=== PATIENT | female | born 1990 | race Caucasian/White ===

== ENCOUNTER 2016-12-27 23:14 | Inpatient (IN) | payer BC ==
[~2016-12-27] VITALS: Ht 157.5 cm; Wt 45.4 kg
[2016-12-27] MEDS ORDERED: Morphine Sulfate 4mg/ml Inj IVP ONE (23:15)
--- NOTE | 2016-12-27 23:26 | Emergency Room Report ---
History of Present Illness General Chief Complaint: Syncope Source: Patient, EMS Present Illness HPI Patient is a 26-year-old female presented after increased vomiting. Patient had prior history of pancreatitis. Patient stated that she had been vomiting several times for the past 2 days. She denied any fever. She reports having epigastric pain. Patient stated that she had not been able to tolerate food or fluids for the last 2 days. She reported having some dark colored emesis which do not appear to be bloody. She denied any diarrhea.She denied recent alcohol use. Allergies: Coded Allergies: No Known Allergies (Unverified , 12/27/16) Patient History Past Medical History: see triage record, other - pancreatitis Last Menstrual Period: 3 weeks ago Now: No Reviewed Nursing Documentation: PMH: Agreed, PSxH: Agreed Nursing Documentation-PMH Past Medical History: No History, Except For Review of Systems All Other Systems: negative except mentioned in HPI Physical Exam Vital Signs Date Time Temp Pulse Resp B/P Pulse Ox O2 Delivery O2 Flow Rate FiO2 12/27/16 22:58 98.4 45 16 142/88 100 Sp02 EP Interpretation: reviewed, normal General Appearance: normal inspection, well appearing, no apparent distress, alert, GCS 15 Head: atraumatic ENT: normal ENT inspection, hearing grossly normal, normal voice Neck: normal inspection, full range of motion, supple, no bony tend Respiratory: normal inspection, lungs clear, normal breath sounds, no respiratory distress, no retraction, no wheezing Cardiovascular #1: regular rate, rhythm, no edema Gastrointestinal: normal inspection, normal bowel sounds, non tender, soft, no guarding, no hernia Genitourinary: no CVA tenderness Musculoskeletal: normal inspection, back normal, normal range of motion Neurologic: normal inspection, alert, oriented x3, responsive, hand quilter III-XII nml as tested, speech normal Psychiatric: normal inspection, judgement/insight normal, mood/affect normal Skin: normal inspection, normal color, no rash Medical Decision Making Diagnostic Impression: Primary Impression: Syncope Additional Impressions: Dehydration Bradycardia ER Course Patient presented for syncope. Differential diagnosis included but not limited to syncope versus seizure. Potential causes for syncope included arrhythmia, dehydration, acute coronary syndrome, severe anemia, pulmonary embolus. The patient appears to have dehydration secondary to vomiting. Patient is also noted be bradycardic which is likely contributory EKG interpreted by me showed sinus bradycardia with rate of 45. There were no acute ST or T wave changes noted. Laboratory testing was notable for elevated white blood count. The patient noted to have some evidence of urine infection. CT imaging of the abdomen pelvis read by radiology. CT showed postsurgical changes to the gallbladder as well as nonspecific bowel gas pattern. There is no evidence of appendicitis noted. Dr. Tio Yeung was contacted for inpatient management Labs Test 12/27/16 23:21 White Blood Count 15.0 K/UL (4.8-10.8) Red Blood Count 4.72 M/UL (4.20-5.40) Hemoglobin 15.7 G/DL (12.0-16.0) Hematocrit 45.4 % (37.0-47.0) Mean Corpuscular Volume 96 FL (80-99) Mean Corpuscular Hemoglobin 33.2 PG (27.0-31.0) Mean Corpuscular Hemoglobin Concent 34.5 G/DL (32.0-36.0) Red Cell Distribution Width 11.1 % (11.6-14.8) Platelet Count 311 K/UL (150-450) Mean Platelet Volume 7.3 FL (6.5-10.1) Neutrophils (%) (Auto) % (45.0-75.0) Lymphocytes (%) (Auto) % (20.0-45.0) Monocytes (%) (Auto) % (1.0-10.0) Eosinophils (%) (Auto) % (0.0-3.0) Basophils (%) (Auto) % (0.0-2.0) Prothrombin Time 10.3 SEC (9.30-11.50) Prothromb Time International Ratio 1.0 (0.9-1.1) Activated Partial Thromboplast Time 22 SEC (23-33) Urine Color Pale yellow Urine Appearance Cloudy Urine pH 8 (4.5-8.0) Urine Specific [place] 1.010 (1.005-1.035) Urine Protein 1+ (NEGATIVE) Urine Glucose (UA) Negative (NEGATIVE) Urine Ketones 4+ (NEGATIVE) Urine Occult Blood Negative (NEGATIVE) Urine Nitrite Positive (NEGATIVE) Urine Bilirubin Negative (NEGATIVE) Urine Urobilinogen Normal MG/DL (0.0-1.0) Urine Leukocyte Esterase 1+ (NEGATIVE) Urine RBC 0-2 /HPF (0 - 2) Urine WBC 0-2 /HPF (0 - 2) Urine Squamous Epithelial Cells Moderate /LPF (NONE/OCC) Urine Amorphous Sediment Many /LPF (NONE) Urine Bacteria Many /HPF (NONE) Urine HCG, Qualitative Negative Sodium Level 136 mEQ/L (135-145) Potassium Level 4.3 mEQ/L (3.4-4.9) Chloride Level 97 mEQ/L (98-107) Carbon Dioxide Level 25 mEQ/L (20-30) Anion Gap 14 (5-15) Blood Urea Nitrogen 6 mg/dL (7-23) Creatinine 0.9 mg/dL (0.5-0.9) Estimat Glomerular Filtration Rate > 60 mL/min (>60) Glucose Level 160 mg/dL (74-106) Calcium Level 9.5 mg/dL (8.6-10.2) Total Bilirubin 1.2 mg/dL (0.0-1.2) Direct Bilirubin 0.2 mg/dL (0.1-0.3) Aspartate Amino Transf (AST/SGOT) 31 U/L (5-40) Alanine Aminotransferase (ALT/SGPT) 40 U/L (3-33) Alkaline Phosphatase 73 U/L (35-104) Troponin I < 0.30 ng/mL (<=0.30) Total Protein 7.0 g/dL (6.6-8.7) Albumin 4.6 g/dL (3.5-5.2) Globulin 2.4 g/dL Albumin/Globulin Ratio 1.9 (1.0-2.7) Lipase 13 U/L (< 60) Urine Opiates Screen Negative (NEGATIVE) Urine Barbiturates Screen Negative (NEGATIVE) Phencyclidine (PCP) Screen Negative (NEGATIVE) Urine Amphetamines Screen Negative (NEGATIVE) Urine Benzodiazepines Screen Negative (NEGATIVE) Urine Cocaine Screen Negative (NEGATIVE) Urine Marijuana (THC) Screen Positive (NEGATIVE) EKG Diagnostic Results Rate: bradycardiac Rhythm: NSR ST Segments: no acute changes Rhythm Strip Diag. Results EP Interpretation: yes Rhythm: no PVC's, no ectopy, other - sinus bradycardai Last Vital Signs Date Time Temp Pulse Resp B/P Pulse Ox O2 Delivery O2 Flow Rate FiO2 12/27/16 22:58 98.4 45 16 142/88 100 Status: unchanged Disposition: ADMITTED INPATIENT Condition: Serious Estevan Jensen Dec 27, 2016 23:26
[2016-12-27 23:35] LABS: MEAN CORPUSCULAR HEMOGLOBIN 33.2 PG (27.0-31.0); MEAN CORPUSCULAR HGB CONC 34.5 G/DL (32.0-36.0); MEAN CORPUSCULAR VOLUME 96 FL (80-99); MEAN PLATELET VOLUME 7.3 FL (6.5-10.1); PLATELET COUNT 311 K/UL (150-450); RED BLOOD COUNT 4.72 M/UL (4.20-5.40); RED CELL DISTRIBUTION WIDTH 11.1 % (11.6-14.8)
[2016-12-27 23:43] VITALS: BP 142/71
[2016-12-27 23:45] LABS: PROTHROMBIN TIME 10.3 SEC (9.30-11.50)
[2016-12-27 23:48] LABS: ALANINE AMINOTRANSFERASE 40 U/L (3-33); ALBUMIN/GLOBULIN RATIO 1.9 (1.0-2.7); ANION GAP 14 (5-15); ASPARTATE AMINO TRANSFERASE 31 U/L (5-40); CALCIUM 9.5 mg/dL (8.6-10.2); CARBON DIOXIDE 25 mEQ/L (20-30); CHLORIDE 97 mEQ/L (98-107); CREATININE 0.9 mg/dL (0.5-0.9); GLOMERULAR FILTRATION RATE > 60 mL/min (>60); HEMOLYSIS 8; LIPASE 13 U/L (< 60); POTASSIUM 4.3 mEQ/L (3.4-4.9); SODIUM 136 mEQ/L (135-145); TROPONIN I < 0.30 ng/mL (<=0.30)
[2016-12-27 23:56] LABS: APPEARANCE,URINE CLOUDY; KETONES,URINE 4+ (NEGATIVE); LEUKOCYTE ESTERASE ,URINE 1+ (NEGATIVE); NITRITE,URINE POSITIVE (NEGATIVE); PH,URINE 8 (4.5-8.0); PROTEIN,URINE 1+ (NEGATIVE); UROBILINOGEN,URINE NORMAL MG/DL (0.0-1.0)
[2016-12-28] VITALS (7 sets, daily range): BP systolic 88–153; BP diastolic 44–77
[2016-12-28 00:06] LABS: AMORPHOUS SEDIMENT,UR MANY /LPF; BACTERIA,URINE MANY /HPF; RBC,URINE 0-2 /HPF (0 - 2); SQUAMOUS EPITHELIAL CELL,UR MODERATE /LPF (NONE/OCC); WBC,URINE 0-2 /HPF (0 - 2)
[2016-12-28 00:07] LABS: BILIRUBIN,DIRECT 0.2 mg/dL (0.1-0.3)
[2016-12-28] MEDS ORDERED: cefTRIAXone 1 GM in NS 55 ML IVPB ONE (01:45)
[2016-12-28] MEDS ORDERED: D5 1/2NS w/KCl 20mEq 1,000 ML IV SCH (02:45)
[2016-12-28] MEDS ORDERED: NKM (04:56)
[2016-12-28] MEDS ORDERED: Morphine Sulfate 4mg/ml Inj IVP ONE (05:00)
[2016-12-28] MEDS: Pantoprazole Inj IV SCH (09:35)
--- NOTE | 2016-12-28 10:05 | Diagnostic Imaging Report ---
Clinical Indication: Abdominal pain Technique: No oral contrast utilized, per emergency room physician request IV administration nonionic contrast. Venous phase spiral acquisition obtained through the abdomen and pelvis. Multiplanar reconstructions were generated. Total dose length product 525 mGycm. CTDIvol(s) 10 mGy. Dose reduction achieved using automated exposure control Comparison: None Findings: The appendix is upper limits of normal in caliber without evidence of surrounding inflammatory change. No evidence of diverticulosis or diverticulitis. There is small amount of free fluid within the pelvis. No small bowel distention. No free intraperitoneal air. Liver demonstrates prominent periportal fat/edema. No focal abnormality. The gallbladder is surgically absent. Bile ducts are unremarkable. The pancreas, spleen, adrenals, kidneys are unremarkable. No retroperitoneal or mesenteric mass or adenopathy. No pelvic mass or adenopathy. The included lung bases are clear. The bones are unremarkable. 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 Impression: No acute abnormality Evidence of prior cholecystectomy Free pelvic fluid, presumed physiologic Periportal edema and prominent fat This agrees with the preliminary interpretation provided overnight by [facility] teleradiology service. The CT scanner at [facility] is accredited by the [employer] and the scans are performed using protocols designed to limit radiation exposure to as low as reasonably achievable to attain images of sufficient resolution adequate for diagnostic evaluation.
--- NOTE | 2016-12-28 11:34 | History & Physical ---
History and Physical History & Physicial H&P dictated [id number] ROSALINA JASMINE M.D. Dec 28, 2016 11:34
--- NOTE | 2016-12-28 12:00 | Cardiology Report ---
APPROVED REPORT EKG Measurement Heart [id number] Sinus bradycardia with marked sinus arrhythmia Rightward axis Borderline ECG
--- NOTE | 2016-12-28 12:49 | GI Initial Consult Note ---
History of Present Illness General Date patient seen: Dec 28, 2016 Time patient seen: 12:42 Reason for Hospitalization: Syncope Referring physician: ROSALINA JASMINE Reason for Consultation: CYCLIC VOMITING Present Illness HPI Patient is a 26-year-old female presented after increased vomiting. Patient had prior history of pancreatitis. Patient stated that she had been vomiting several times for the past 2 days. She denied any fever. She reports having epigastric pain. Patient stated that she had not been able to tolerate food or fluids for the last 2 days. She reported having some dark colored emesis which do not appear to be bloody. She denied any diarrhea.She denied recent alcohol use. GI Consult. HPI as noted above. GI consulted for Cyclic Vomiting. Pt seen on floor, awake A&Ox4 NAD with no active s/sx of N/V/D. The patient is a resident of [place], here on vacation stated she had multiple episodes of emesis, denies hematemesis or coffee grounds, accompanied with diarrhea. She contributes this to the heat and possibly to bad food she had ingested. Pt positive for MJ on urine toxic. No history of endoscopic procedures. Home Meds Reported Medications No Known Medications* (NKM - No Known Medications*) ., 0 ., 0 Refills 12/28/16 Med list reviewed/reconciled: Yes Allergies: Coded Allergies: No Known Allergies (Unverified , 12/27/16) Patient History History Provided By: Patient, Medical Record PMH Narrative Past Medical History: see triage record, other - pancreatitis Last Menstrual Period: 3 weeks ago Now: No Reviewed Nursing Documentation: PMH: Agreed, PSxH: Agreed Nursing Documentation-PMH Past Medical History: No History, Except For Social History: Reports: drug use Review of Systems All Other Systems: negative except mentioned in HPI Physical Exam Vital Signs Date Time Temp Pulse Resp B/P Pulse Ox O2 Delivery O2 Flow Rate FiO2 12/27/16 22:58 98.4 45 16 142/88 100 12/27/16 23:43 Room Air Sp02 EP Interpretation: reviewed Labs Laboratory Tests Test 12/27/16 23:21 White Blood Count 15.0 K/UL (4.8-10.8) H Red Blood Count 4.72 M/UL (4.20-5.40) Hemoglobin 15.7 G/DL (12.0-16.0) Hematocrit 45.4 % (37.0-47.0) Mean Corpuscular Volume 96 FL (80-99) Mean Corpuscular Hemoglobin 33.2 PG (27.0-31.0) H Mean Corpuscular Hemoglobin Concent 34.5 G/DL (32.0-36.0) Red Cell Distribution Width 11.1 % (11.6-14.8) L Platelet Count 311 K/UL (150-450) Mean Platelet Volume 7.3 FL (6.5-10.1) Neutrophils (%) (Auto) % (45.0-75.0) Lymphocytes (%) (Auto) % (20.0-45.0) Monocytes (%) (Auto) % (1.0-10.0) Eosinophils (%) (Auto) % (0.0-3.0) Basophils (%) (Auto) % (0.0-2.0) Prothrombin Time 10.3 SEC (9.30-11.50) Prothromb Time International Ratio 1.0 (0.9-1.1) Activated Partial Thromboplast Time 22 SEC (23-33) L Urine Color Pale yellow Urine Appearance Cloudy Urine pH 8 (4.5-8.0) Urine Specific [place] 1.010 (1.005-1.035) Urine Protein 1+ (NEGATIVE) H Urine Glucose (UA) Negative (NEGATIVE) Urine Ketones 4+ (NEGATIVE) H Urine Occult Blood Negative (NEGATIVE) Urine Nitrite Positive (NEGATIVE) H Urine Bilirubin Negative (NEGATIVE) Urine Urobilinogen Normal MG/DL (0.0-1.0) Urine Leukocyte Esterase 1+ (NEGATIVE) H Urine RBC 0-2 /HPF (0 - 2) Urine WBC 0-2 /HPF (0 - 2) Urine Squamous Epithelial Cells Moderate /LPF (NONE/OCC) H Urine Amorphous Sediment Many /LPF (NONE) H Urine Bacteria Many /HPF (NONE) H Urine HCG, Qualitative Negative Sodium Level 136 mEQ/L (135-145) Potassium Level 4.3 mEQ/L (3.4-4.9) Chloride Level 97 mEQ/L (98-107) L Carbon Dioxide Level 25 mEQ/L (20-30) Anion Gap 14 (5-15) Blood Urea Nitrogen 6 mg/dL (7-23) L Creatinine 0.9 mg/dL (0.5-0.9) Estimat Glomerular Filtration Rate > 60 mL/min (>60) Glucose Level 160 mg/dL (74-106) H Calcium Level 9.5 mg/dL (8.6-10.2) Total Bilirubin 1.2 mg/dL (0.0-1.2) Direct Bilirubin 0.2 mg/dL (0.1-0.3) Aspartate Amino Transf (AST/SGOT) 31 U/L (5-40) Alanine Aminotransferase (ALT/SGPT) 40 U/L (3-33) H Alkaline Phosphatase 73 U/L (35-104) Troponin I < 0.30 ng/mL (<=0.30) Total Protein 7.0 g/dL (6.6-8.7) Albumin 4.6 g/dL (3.5-5.2) Globulin 2.4 g/dL Albumin/Globulin Ratio 1.9 (1.0-2.7) Lipase 13 U/L (< 60) Urine Opiates Screen Negative (NEGATIVE) Urine Barbiturates Screen Negative (NEGATIVE) Phencyclidine (PCP) Screen Negative (NEGATIVE) Urine Amphetamines Screen Negative (NEGATIVE) Urine Benzodiazepines Screen Negative (NEGATIVE) Urine Cocaine Screen Negative (NEGATIVE) Urine Marijuana (THC) Screen Positive (NEGATIVE) H General Appearance: well appearing, no apparent distress, thin Head: normocephalic EENT: normal ENT inspection Neck: full range of motion, supple Respiratory: normal breath sounds, no respiratory distress Cardiovascular: normal rate Gastrointestinal: normal inspection, non tender, soft, normal bowel sounds Rectal: deferred Musculoskeletal: normal inspection, back normal Neurologic: normal inspection, alert, oriented x3, responsive Psychiatric: normal inspection, judgement/insight normal, memory normal Skin: normal inspection, normal color, no rash, warm/dry, palpation normal Lymphatic: normal inspection, no adenopathy Current Medications Current Medications Medications (Trade) Dose Ordered Sig/Cristopher Route PRN Reason Start Time Stop Time Status Last Admin Dose Admin Acetaminophen (Tylenol) 650 mg Q4H PRN ORAL Mild Pain (Pain Scale 1-3) 12/28/16 07:15 01/27/17 07:14 Dextrose (Dextrose 50%) STAT PRN IV Hypoglycemia 12/28/16 07:15 01/27/17 07:14 Ondansetron HCl (Zofran) 4 mg Q6H PRN IVP Nausea & Vomiting 12/28/16 07:15 01/27/17 07:14 Pantoprazole (Protonix) 40 mg DAILY IV 12/28/16 09:00 01/27/17 08:59 12/28/16 09:35 Sodium Chloride (Sodium Chloride 1000ml bag) 1,000 ml @ 75 mls/hr [id number] IVLG 12/28/16 07:30 01/27/17 07:29 12/28/16 09:34 GI: Plan Problems: (1) Cyclic vomiting syndrome (2) Dehydration (3) Syncope (4) Heat exhaustion Plan APCT reviewed supportive care zofran prn IV hydration + electrolyte replacement pain mgmt adv to regular diet ppi stool studies if patient continues to have diarrhea fu labs Discussed with Dr. Castillo. Thank you for referring this patient, we will follow. Fior Del Toro N.P. Dec 28, 2016 12:49
[2016-12-28] MEDS: Morphine Sulfate 4mg/ml Inj IVP PRN (18:30)
--- NOTE | 2016-12-28 19:45 | History and Physical Report ---
DATE OF ADMISSION: 12/28/2016 REASON FOR ADMISSION: Vomiting. HISTORY OF PRESENT ILLNESS: This is a 26-year-old female with history of marijuana use, visiting from [place], who presented to the hospital for increased vomiting. She does have a history of chronic pancreatitis that was diagnosed four years ago after cholecystectomy. She reports some abdominal pain that is diffuse, different from her chronic pancreatitis pain. She had over 10 episodes of vomiting that started yesterday. She remembers having cheese fries yesterday and weather being warm. She also had episodes of diarrhea. She denies any alcohol use. She denies smoking any more marijuana than normal. She is not able to tolerate food for the last two days. She feels much better today, has not any nausea or vomiting. PAST MEDICAL HISTORY: Includes chronic pancreatitis. PAST SURGICAL HISTORY: Cholecystectomy. MEDICATIONS: None. ALLERGIES: Negative. SOCIAL HISTORY: She smokes marijuana every day. No alcohol. No cigarettes. FAMILY HISTORY: Negative. REVIEW OF SYSTEMS: A 12-point review of systems is negative except for pertinent positives as mentioned above. PHYSICAL EXAMINATION: VITAL SIGNS: Temperature is 97.8, pulse 44, blood pressure 100/44, respiratory rate of 19, and O2 saturation is 98% on room air. GENERAL: No acute distress. HEENT: Normocephalic and atraumatic. NECK: Supple. No JVD. LUNGS: Clear to auscultation bilaterally. No crackles, rhonchi, or rales. CARDIOVASCULAR: Regular rate and rhythm. Normal S1 and S2. ABDOMEN: Soft, nontender, and nondistended. EXTREMITIES: No clubbing, cyanosis, or edema. LABORATORY AND DIAGNOSTIC DATA: CBC, white count of 15.0, hemoglobin 15.7, and platelet count of 311,000. BMP, sodium 136, potassium 4.3, chloride 97, CO2 is 25, BUN is 6, creatinine 0.9, and glucose is 160. Troponin less than 0.30. Toxicology positive for marijuana. UA has 4+ ketones, positive nitrites, 0 to 2 white blood cells. Abdomen and pelvis CT shows evidence of prior cholecystectomy. No pancreatitis. No acute abnormality. ASSESSMENT: 1. Nausea, vomiting, abdominal pain, and diarrhea likely secondary to gastroenteritis versus less likely hyperemesis cannabis. 2. History of chronic pancreatitis - doubt the patient's symptoms are related to chronic pancreatitis given nature of pain and physical examination. PLAN: 1. Telemetry. 2. GI consult. 3. IV fluids. The patient has a starvation ketoacidosis in urine and is severely dehydrated. 4. Check stool studies. 5. GI consult. Tio Yeung MD DR: KRISHNA JOB#: [id number] CC:
[2016-12-29] VITALS: BP 108/61
[2016-12-29] MEDS: Morphine Sulfate 4mg/ml Inj IVP PRN (01:06)
[2016-12-29 04:00] VITALS: BP 90/56
[2016-12-29 07:49] LABS: ANION GAP 9 (5-15); CALCIUM 8.7 mg/dL (8.6-10.2); CARBON DIOXIDE 28 mEQ/L (20-30); CHLORIDE 104 mEQ/L (98-107); CREATININE 0.8 mg/dL (0.5-0.9); GLOMERULAR FILTRATION RATE > 60 mL/min (>60); HEMOLYSIS 15; POTASSIUM 4.4 mEQ/L (3.4-4.9); SODIUM 141 mEQ/L (135-145)
[2016-12-29 07:53] LABS: BASOPHILS % (AUTO) 1.1 % (0.0-2.0); EOSINOPHILS % (AUTO) 2.8 % (0.0-3.0); LYMPHOCYTES % (AUTO) 34.3 % (20.0-45.0); MEAN CORPUSCULAR HEMOGLOBIN 32.6 PG (27.0-31.0); MEAN CORPUSCULAR HGB CONC 32.8 G/DL (32.0-36.0); MEAN CORPUSCULAR VOLUME 99 FL (80-99); MEAN PLATELET VOLUME 7.2 FL (6.5-10.1); MONOCYTES % (AUTO) 10.1 % (1.0-10.0); NEUTROPHILS % (AUTO) 51.7 % (45.0-75.0); PLATELET COUNT 245 K/UL (150-450); RED BLOOD COUNT 4.15 M/UL (4.20-5.40); RED CELL DISTRIBUTION WIDTH 11.4 % (11.6-14.8); WHITE BLOOD COUNT 7.1 K/UL (4.8-10.8)
[2016-12-29 08:00] VITALS: BP 104/56
[2016-12-29] MEDS: Pantoprazole Inj IV SCH (09:01)
[2016-12-29 12:00] VITALS: BP 91/52
--- NOTE | 2016-12-29 13:07 | Discharge Summary ---
Discharge Summary Hospital Course Date of Admission Dec 28, 2016 at 03:10 Date of Discharge Admitting Diagnosis syncope, bradycardia, leukocytosis HPI Lacey Suarez is a 26 year old female who was admitted on Dec 28, 2016 at 03:10 for Syncope and nausea/vomiting patient was seen by GI for nausea/vomiting and abd pain. possibly cyclic vomiting syndrome vs Gastroenteritis vs Hyperemesis canniboid. CT abd/pelvis was nonrevealing. She was aggressively hydrated with IVF. advised to stop smoking marijuana. she was able to tolerate PO intake and her abd pain resolved. Consultations patient was seen by GI for nausea/vomiting and abd pain. possibly cyclic vomiting syndrome vs Gastroenteritis vs Hyperemesis canniboid. CT abd/pelvis was nonrevealing. She was aggressively hydrated with IVF. advised to stop smoking marijuana. she was able to tolerate PO intake and her abd pain resolved. Discharge Condition Upon Discharge: stable Discharge Disposition Patient was discharged to HOME Discharge Diagnoses: ROSALINA JASMINE M.D. Dec 29, 2016 13:07
--- NOTE | 2016-12-29 13:08 | Discharge Instructions ---
Discharge Instructions Discharge Instructions Call MD/Return to Hospital if: worsening nausea/vomiting or abd pain Diet: regular Resume Normal Activity?: Yes For Congestive Heart Failure Reminder Report to your physician any weight gain of 5 pounds or more in one week. ROSALINA JASMINE M.D. Dec 29, 2016 13:08
--- NOTE | 2016-12-29 14:16 | GI Progress Note ---
Assessment/Plan Problems: (1) Heat exhaustion ICD Codes: T67.5XXA - Heat exhaustion, unspecified, initial encounter SNOMED: 57883522 (2) Cyclic vomiting syndrome ICD Codes: G43.A0 - Cyclical vomiting, not intractable SNOMED: 62099899 (3) Syncope ICD Codes: R55 - Syncope and collapse SNOMED: 299603822 (4) Bradycardia ICD Codes: R00.1 - Bradycardia, unspecified SNOMED: 19836424 (5) Dehydration ICD Codes: E86.0 - Dehydration SNOMED: 83222251 Status: stable Status Narrative Discussed with Dr. Castillo. Assessment/Plan APCT reviewed okay for DC per GI standpoint supportive care zofran prn PO hydration ppi stool studies if patient continues to have diarrhea fu labs Subjective Subjective no symptoms, ready to go home Objective Last 24 Hour Vital Signs Date Time Temp Pulse Resp B/P Pulse Ox O2 Delivery O2 Flow Rate FiO2 12/29/16 12:00 47 12/29/16 12:00 98.4 47 18 91/52 98 Room Air 12/29/16 12:00 98.4 47 18 91/52 98 Room Air 12/29/16 08:00 48 12/29/16 08:00 97.9 48 18 104/56 98 Room Air 12/29/16 04:00 42 12/29/16 04:00 97.9 74 18 90/56 98 Room Air 12/29/16 03:04 65 12/29/16 01:36 97.9 12/29/16 00:00 97.9 61 16 108/61 98 Room Air 12/28/16 20:00 54 12/28/16 20:00 97.9 58 18 97/61 98 Room Air 12/28/16 16:00 97.2 50 19 98/54 99 Room Air Intake and Output 12/28/16 12/29/16 19:00 07:00 Intake Total 600 ml 1415 ml Balance 600 ml 1415 ml Intake Oral 600 ml 440 ml IV Total 975 ml Laboratory Tests Test 12/29/16 07:30 White Blood Count 7.1 K/UL (4.8-10.8) # Red Blood Count 4.15 M/UL (4.20-5.40) L Hemoglobin 13.5 G/DL (12.0-16.0) Hematocrit 41.3 % (37.0-47.0) Mean Corpuscular Volume 99 FL (80-99) Mean Corpuscular Hemoglobin 32.6 PG (27.0-31.0) H Mean Corpuscular Hemoglobin Concent 32.8 G/DL (32.0-36.0) Red Cell Distribution Width 11.4 % (11.6-14.8) L Platelet Count 245 K/UL (150-450) Mean Platelet Volume 7.2 FL (6.5-10.1) Neutrophils (%) (Auto) 51.7 % (45.0-75.0) Lymphocytes (%) (Auto) 34.3 % (20.0-45.0) Monocytes (%) (Auto) 10.1 % (1.0-10.0) H Eosinophils (%) (Auto) 2.8 % (0.0-3.0) Basophils (%) (Auto) 1.1 % (0.0-2.0) Sodium Level 141 mEQ/L (135-145) Potassium Level 4.4 mEQ/L (3.4-4.9) Chloride Level 104 mEQ/L (98-107) Carbon Dioxide Level 28 mEQ/L (20-30) Anion Gap 9 (5-15) Blood Urea Nitrogen 7 mg/dL (7-23) Creatinine 0.8 mg/dL (0.5-0.9) Estimat Glomerular Filtration Rate > 60 mL/min (>60) Glucose Level 87 mg/dL (74-106) Calcium Level 8.7 mg/dL (8.6-10.2) Height (Feet): 5 Height (Inches): 2.00 Weight (Pounds): 100 General Appearance: no apparent distress, alert, thin Cardiovascular: normal rate Respiratory/Chest: normal breath sounds, no respiratory distress Abdominal Exam: normal bowel sounds, non tender, soft Extremities: normal range of motion Fior Del Toro N.P. Dec 29, 2016 14:16
== END 2016-12-29 15:30 | disposition home or self-care (01) | DRG 641 ==
LOC: EDBD 23:14 → EMR 23:55 → 2E 12-28 03:10 → EDBEDREQ 12-28 04:43
DX: E86.0 Dehydration (principal); K52.9 Noninfective gastroenteritis and colitis, unspecified; R00.1 Bradycardia, unspecified; G43.A0 Cyclical vomiting, in migraine, not intractable; F12.90 Cannabis use, unspecified, uncomplicated; T67.5XXA Heat exhaustion, unspecified, initial encounter; X58.XXXA Exposure to other specified factors, initial encounter; Y92.9 Unspecified place or not applicable
CPT/HCPCS: 36415; 74177; 80048; 80053; 80300; 81003; 81025; 82248; 83690; 84484; 85025; 85610; 85730; 87086; 87181; 93005; J2405